=== PATIENT | male | born 1985 | race Two or more races ===

== ENCOUNTER 2021-03-29 10:27 | Emergency (ER) | payer OTHER ==
[~2021-03-29] VITALS: Ht 188 cm; Wt 95.3 kg
[2021-03-29] MEDS ORDERED: SODIUM CHLORIDE 0.9% 1,000 ML IV ONE ×2 (10:45)
[2021-03-29] MEDS ORDERED: THIAMINE 100mg/ml INJ (200mg/2ml VIAL) IV ONE (10:45)
[2021-03-29] MEDS ORDERED: chlordiazePOXIDE HCL 5 MG CAP PO ONE (10:45)
[2021-03-29 11:53] LABS: Amphetamine Screen, Urine NEGATIVE (NEGATIVE); Barbiturate Scree,Urine NEGATIVE (NEGATIVE); Benzodiazephine Screen, Urine NEGATIVE (NEGATIVE); Cannabinoid Screen, Urine POSITIVE (NEGATIVE); Cocaine Screen, Urine POSITIVE (NEGATIVE); Opiate Scree,Urine NEGATIVE (NEGATIVE); Phencyclidine Screen, Urine NEGATIVE (NEGATIVE)
[2021-03-29 11:55] LABS: Urine Bacteria NONE SEEN /hpf (None Seen); Urine Blood Negative /uL (Negative); Urine Hyaline Cast FEW /lpf (0 - 2); Urine Mucus FEW (None Seen); Urine Specific Gravity 1.011 (1.001-1.035); Urine WBC 1 /hpf (0 - 3)
[2021-03-29 11:55] LABS: Basophils # (auto) 0 10 ^3/uL (0-0.2); Basophils % (auto) 0.5 % (0.0-2.0); Eosinophils # (auto) 0 10 ^3/uL (0-0.8); Hematocrit 50.5 % (41.0-53.0); Hemoglobin 17.2 g/dL (13.5-17.5); Lymphocytes # (auto) 0.8 10 ^3/uL (0.4-5.4); Lymphocytes % (auto) 8.4 % (10.0-50.0); Mean Corpuscular Hemoglobin 32.2 pg (28.0-32.0); Mean Corpuscular Hgb Conc. 34.1 g/dL (32.0-36.0); Mean Corpuscular Volume 94.4 fL (80.0-100.0); Monocytes # (auto) 0.6 10 ^3/uL (0-1.3); Monocytes % (auto) 6.5 % (0.0-12.0); Neutrophils # (auto) 8.2 10 ^3/uL (1.6-8.6); Neutrophils % (auto) 84.6 % (37.0-80.0); Nucleated Red Blood Cells % 0.1 %; Red Blood Cells 5.35 10^6/uL (4.5-5.90); Red Cell Distribution Width 13.5 % (11.8-14.3); White Blood Cell 9.7 10^3/uL (4.4-10.8)
[2021-03-29 12:14] LABS: Albumin 3.8 g/dL (3.4-5.0); Anion Gap 10 (5-15); Blood Urea Nitrogen 5 mg/dL (7-18); Calcium 9.4 mg/dL (8.5-10.1); Carbon Dioxide 27 mmol/L (21-32); Chloride 97 mmol/L (98-107); Glucose 127 mg/dL (74-106); Potassium 4.1 mmol/L (3.5-5.1); Sodium 134 mmol/L (136-145)
[2021-03-29 12:20] LABS: Alanine Aminotransferase 119 U/L (16-61); Alkaline Phosphatase 146 U/L (45-117); Aspartate Aminotransferase 113 U/L (15-37); BUN/Creatinine Ratio 6.8; Bilirubin, Total 0.7 mg/dL (0.2-1.0); GFR African American 153 mL/min; GFR Non-African American 126 mL/min; Total Protein 7.6 g/dL (6.4-8.2)
[2021-03-29 12:24] LABS: Blood Alcohol < 3.0 mg/dL (0-5)
[2021-03-29] MEDS ORDERED: ONDANSETRON HCL 4 MG/2 ML VIAL ONE (15:04)
[2021-03-29] MEDS ORDERED: ONDANSETRON HCL 4 MG/2 ML VIAL IV ONE (15:15)
[2021-03-30] MEDS ORDERED: LORazepam 2MG/ML-1ML VIAL IV ONE (07:00)
[2021-03-30] MEDS ORDERED: ONDANSETRON HCL 4 MG/2 ML VIAL IV ONE (13:00)
[2021-03-31] MEDS ORDERED: LORazepam 0.5 MG TAB PO ONE ×3 (08:30→20:00)
[2021-03-31 20:29] VITALS: BP 149/108
== END 2021-03-31 20:44 ==
LOC: ER 10:27
DX: R45.851 Suicidal ideations (principal); F10.239 Alcohol dependence with withdrawal, unspecified; F14.10 Cocaine abuse, uncomplicated; R74.8 Abnormal levels of other serum enzymes; Y90.0 Blood alcohol level of less than 20 mg/100 ml; Z20.822 Contact with and (suspected) exposure to COVID-19
CPT/HCPCS: 36415; 80053; 80307; 80320; 81001; 84443; 84484; 85025; 87426; 96361; 96374; 96375; 99285; J2405; J3411; 71046